=== PATIENT | male | born 1970 | race Caucasian/White ===

== ENCOUNTER → 2018-02-24 | Outpatient (CLI) | payer MEDICARE ==
[~2018-02-24] MED LIST: CIPR-225 PO
--- NOTE | 2018-02-24 10:05 | Diagnostic Imaging Report ---
PROCEDURE: MR imaging cervical spine without contrast. TECHNIQUE: Multiplanar, multisequence MR imaging of the cervical spine was performed without contrast. INDICATION: Chronic neck pain and back pain and posterior headaches. No prior studies are available for comparison. FINDINGS: Curvature and alignment of the cervical spine is normal. Vertebral body marrow signal is unremarkable. There is degenerative disc disease at the C5-C6 and C6-C7 levels, with disc space narrowing, desiccation and marginal osteophyte formation. There is some mild increased T2 signal noted within the spinal cord at the C5-C6 disc level. This most likely represents an area of myelomalacia. No other abnormal cord signal is detected. C2-C3: No central canal or neural foraminal stenosis is identified. C3-C4: Endplate osteophytes indent the ventral thecal sac and produce mild central canal narrowing. There is also moderate bilateral neural foraminal stenosis due to uncovertebral joint degenerative change. C4-C5: Endplate osteophytes produce moderate central canal stenosis. There is also significant bilateral neural foraminal stenosis. C5-C6: Prominent broad-based disc/osteophyte complex does produce significant central canal stenosis. There is also significant bilateral neural foraminal stenosis. C6-C7: Endplate osteophytes produce moderate central canal stenosis. There is also prominent left uncovertebral joint degenerative change producing significant left neural foraminal stenosis. C7-T1: Unremarkable. The paraspinous soft tissues are unremarkable. IMPRESSION: Multilevel cervical spondylosis with multilevel central canal and neural foraminal stenosis described level by level above. There appears to be an area of myelomalacia within the spinal cord at the C5-C6 level. Dictated by: Dictated on workstation # [id number]
--- NOTE | 2018-02-24 11:13 | Diagnostic Imaging Report ---
PROCEDURE: MRI lumbar spine. TECHNIQUE: Multiplanar, multisequence MRI of the lumbar spine was performed without contrast. INDICATION: Chronic back pain. Posterior leg pain and numbness to the buttocks. COMPARISON: None. FINDINGS: For the purposes of this exam, last well-formed disc space is denoted at the L5-S1 level. Evaluation of the static alignment demonstrates mild grade 1 anterolisthesis at L5-S1. There is also slight grade 1 retrolisthesis at L4-L5. There is no evidence of jumped facets. Vertebral body heights are maintained. There is no evidence of acute fracture. Marrow signal is unremarkable. Vertebral body heights are fairly well maintained, although there is slight height loss and loss of normal T2 bright signal at the L4-L5 and L5-S1 levels. There is also mild multilevel posterior disc bulging. Visualized portions of distal cord are unremarkable. Conus terminates at approximately the L1 level. No abnormal intrathecal filling defects are seen. Pre-and paravertebral soft tissue structures are unremarkable. Axial images demonstrate the following: T12-L1: There is no large disc bulge or focal protrusion. There is no significant spinal canal or neuroforaminal stenosis. L1-L2: There is no large disc bulge or focal contusion. There is bilateral facet arthropathy. There is no significant spinal canal or neuroforaminal stenosis. L2-L3: There is no large posterior disc bulge or focal protrusion. There is bilateral facet arthropathy and ligament flavum laxity. There is narrowing of the thecal sac, but this appears to be related primarily to prominent epidural fat. L3-L4: There is slight broad-based posterior disc bulge and bilateral ligamentum flavum laxity and facet arthropathy. There is significant narrowing of the thecal sac at this level as well, but again this appears to be primarily related to prominent epidural fat. There is also mild narrowing of the bilateral neuroforamen. L4-L5: There is mild broad-based posterior disc bulge and bilateral facet arthropathy. There is significant narrowing of the thecal sac at this level as well primarily related to prominent epidural fat. There is also moderate narrowing of the bilateral neuroforamen. L5-S1: There is unroofing of the disc with broad-based posterior disc bulge and significant bilateral facet arthropathy. There is moderate stenosis of the bilateral neuroforamen. Spinal canal is unremarkable. IMPRESSION: 1. There is significant narrowing of the inferior thecal sac of the lumbar spine, but this appears to be primarily related to prominent epidural fat. 2. Otherwise, mild multilevel degenerative changes of the lumbar spine as described above. 3. No evidence of acute fracture. Dictated by: Dictated on workstation # [id number]
== END ==
LOC: RAD 08:44
PROVIDERS: ATTEND Nurse Practitioner Community Health
DX: M48.02 Spinal stenosis, cervical region (principal); M99.71 Connective tissue and disc stenosis of intervertebral foramina of cervical region; M99.73 Connective tissue and disc stenosis of intervertebral foramina of lumbar region; M50.122 Cervical disc disorder at C5-C6 level with radiculopathy; M47.22 Other spondylosis with radiculopathy, cervical region; M43.17 Spondylolisthesis, lumbosacral region; M46.87 Other specified inflammatory spondylopathies, lumbosacral region; M51.17 Intervertebral disc disorders with radiculopathy, lumbosacral region
CPT/HCPCS: 72141; 72148